=== PATIENT | female | born 2000 | race Caucasian/White ===

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

== ENCOUNTER 2024-05-25 08:03 | Day surgery (SDC) | payer BC ==
[~2024-05-25 08:03] MED LIST: Sodium Chloride 0.9% 10 ML Syringe FLUSH PRN
[2024-05-25] MEDS ORDERED: Midazolam 1 MG/ML 2 ML SDV IV ONE (08:04)
[2024-05-25] MEDS ORDERED: Propofol 200 MG/20 ML SDV IV ONE (08:04)
[2024-05-25 08:24] VITALS: BP 134/83; PULSE 67
[2024-05-25] MEDS: Lactated Ringers 1,000 ML IV SCH (08:48)
[2024-05-25] MEDS: Simethicone Drops 40 MG/0.6 ML 30 ML Bottle ONE (09:17)
== END 2024-05-25 10:45 | disposition home or self-care (01) ==
LOC: FB.SDS 08:03
PROVIDERS: ATTEND Surgery
DX: K29.50 Unspecified chronic gastritis without bleeding (principal); K21.00 Gastro-esophageal reflux disease with esophagitis, without bleeding; K31.89 Other diseases of stomach and duodenum; Z79.899 Other long term (current) drug therapy
CPT/HCPCS: 00731; 88305; 88342; A9270-GY; J2250; J2704; J7120